=== PATIENT | female | born 1990 | race Two or more races ===

== ENCOUNTER 2020-07-27 10:19 | Emergency (ER) | payer SELFPAY ==
[2020-07-27] MEDS ORDERED: NORMAL SALINE 1000 ML 1,000 ML IV ONE (10:42)
--- NOTE | 2020-07-27 10:46 | ER Document Report ---
ED Medical Screen (RME) - General Chief Complaint: Headache >24 hrs old Stated Complaint: LIGHTHEADED,HEADACHE Time Seen by Provider: 07/27/20 10:34 - HPI Notes: 07/27/20 10:44 29-year-old female with a history of preeclampsia on amlodipine and lisinopril since 2019 who was recently diagnosed with anemia and started on iron pills presents to the emergency room for lightheadedness that has been constant as well as intermittent dizziness for the last 6 days. Reports she has had dull headaches for the last 3 days. Patient reports that the room is spinning intermittently reports some numbness and tingling in her hands. Denies any chest pain shortness of breath changes in vision. Denies any nausea,vomiting, or diarrhea. Patient's last menstrual cycle was 07/11/2020, she is on control. Patient takes amlodipine 10 mg and lisinopril 10 mg in the mornings, she has not taken them for the last 2 days. Her doctor at [facility], which she has just relocated from that area, advised her to discontinue taking them. I have greeted and performed a rapid initial assessment of this patient. A comprehensive ED assessment and evaluation of the patient, analysis of test results and completion of the medical decision making process will be conducted by additional ED providers. PHYSICAL EXAMINATION: GENERAL: Well-appearing, well-nourished and in no acute distress. HEAD: Atraumatic, normocephalic. EYES: Pupils equal round extraocular movements intact, conjunctiva are normal. NECK: Normal range of motion CV: s1, s2 regular LUNGS: No respiratory distress NEUROLOGICAL: Normal speech, normal gait. - Related Data Allergies/Adverse Reactions: No Known Allergies Allergy (Unverified 07/27/20 10:32) Home Medications: lisinopril, amlodipine Past Medical History - Social History Chew tobacco use (# tins/day): No Frequency of alcohol use: None Drug Abuse: None - Past Medical History Cardiac Medical History: Reports: Hx Hypertension - PP HTN Past Surgical History: Reports: Hx Section - x2 Physical Exam - Vital signs Vitals: Temp 98.9 F 07/27/20 10:33 Course - Vital Signs Vital signs: Temp Pulse Resp BP Pulse Ox 98.9 F 68 18 134/84 H 100 07/27/20 10:42 07/27/20 10:42 07/27/20 10:42 07/27/20 10:42 07/27/20 10:42
[2020-07-27 11:24] LABS: ABSOLUTE EOSINOPHILS # (AUTO) 0.1 10^3/uL (0.0-0.6); ABSOLUTE LYMPHOCYTES (AUTO) 1.9 10^3/uL (0.5-4.7); ABSOLUTE MONOCYTES (AUTO) 0.3 10^3/uL (0.1-1.4); ABSOLUTE NEUT (AUTO) 2.1 10^3/uL (1.7-8.2); BASOPHILS % (AUTO) 0.8 % (0-2); EOSINOPHILS % (AUTO) 1.9 % (0-6); HEMATOCRIT 37.6 % (36.0-47.0); HEMOGLOBIN 12.4 g/dL (12.0-15.5); LYMPHOCYTES % (AUTO) 43.8 % (13-45); MEAN CORPUSCULAR HEMOGLOBIN 25.2 pg (27.0-33.4); MEAN CORPUSCULAR HGB CONC 33.1 g/dL (32.0-36.0); MEAN CORPUSCULAR VOLUME 76 fl (80-97); MONOCYTES % (AUTO) 5.7 % (3-13); PLATELET COUNT 399 10^3/uL (150-450); RED BLOOD COUNT 4.93 10^6/uL (3.72-5.28); RED CELL DISTRIBUTION WIDTH 18.7 % (11.5-14.0); SEGMENTED NEUTROPHILS % (AUTO) 47.8 % (42-78); TOTAL CELLS COUNTED % (AUTO) 100 %; WHITE BLOOD COUNT 4.4 10^3/uL (4.0-10.5)
[2020-07-27 11:30] LABS: APPEARANCE,URINE SLIGHTLY-CLOUDY; BILIRUBIN,URINE NEGATIVE (NEGATIVE); COLOR,URINE YELLOW; GLUCOSE, URINE NEGATIVE (NEGATIVE); KETONES,URINE NEGATIVE (NEGATIVE); LEUKOCYTE ESTERASE,URINE NEGATIVE (NEGATIVE); NITRITE,URINE NEGATIVE (NEGATIVE); PROTEIN,URINE 30 mg/dL (NEGATIVE); URINE SPECIFIC GRAVITY 1.028; UROBILINOGEN,URINE NEGATIVE mg/dL (<2.0)
[2020-07-27 11:41] LABS: ALBUMIN 4.7 g/dL (3.5-5.0); ALKALINE PHOSPHATASE 40 U/L (38-126); ANION GAP 10 (5-19); ASPARTATE AMINO TRANSFERASE 25 U/L (14-36); BILIRUBIN,DIRECT 0.1 mg/dL (0.0-0.4); BILIRUBIN,TOTAL 0.3 mg/dL (0.2-1.3); BLOOD UREA NITROGEN 13 mg/dL (7-20); CARBON DIOXIDE 26 mmol/L (22-30); CHLORIDE 104 mmol/L (98-107); GLUCOSE 84 mg/dL (75-110); POTASSIUM 4.9 mmol/L (3.6-5.0)
[2020-07-27 11:44] LABS: C-REACTIVE PROTEIN < 5.0 mg/L (<10.0)
--- NOTE | 2020-07-27 11:48 | RADIOLOGY REPORT (SQ) ---
EXAM DESCRIPTION: CHEST SINGLE VIEW IMAGES COMPLETED DATE/TIME: 07/27/2020 11:26 am REASON FOR STUDY: dizziness COMPARISON: None. EXAM PARAMETERS: NUMBER OF VIEWS: One view. TECHNIQUE: Single frontal radiographic view of the chest acquired. RADIATION DOSE: NA LIMITATIONS: None. FINDINGS: LUNGS AND PLEURA: No opacities, masses or pneumothorax. No pleural effusion. MEDIASTINUM AND HILAR STRUCTURES: No masses. Contour normal. HEART AND VASCULAR STRUCTURES: Heart is at the upper limits of normal in size. No failure. BONES: No acute findings. HARDWARE: None in the chest. OTHER: No other significant finding. IMPRESSION: Mild cardiac enlargement. No failure or consolidation. TECHNICAL DOCUMENTATION: JOB ID: [id number] 2010 [employer]- All Rights Reserved Reading location - IP/workstation name: [email or web address]
[2020-07-27 12:01] LABS: ERYTHROCYTE SEDIMENTATION RATE 16 mm/hr (0-20)
--- NOTE | 2020-07-27 12:56 | EKG REPORT ---
SEVERITY:- OTHERWISE NORMAL ECG - SINUS ARRHYTHMIA, RATE 51-75 : Confirmed by: Roc Torres MD 27-Jul-2020 12:55:00
--- NOTE | 2020-07-27 13:28 | ER Document Report ---
ED General - General Chief Complaint: Headache >24 hrs old Stated Complaint: LIGHTHEADED,HEADACHE Time Seen by Provider: 07/27/20 10:34 - HPI Notes: Chief complaint: Dizziness History of present illness: 29-year-old female with history of hypertension presents for evaluation of dizziness of several days duration. She has a history of preeclampsia and chronic hypertension on amlodipine and lisinopril since 2019. She was recently diagnosed with anemia and started on iron pills presents to the emergency room for lightheadedness that has been constant as well as intermittent dizziness for the last 6 days. Reports she has had dull headaches for the last 3 days. Patient reports that the room is spinning intermittently reports some numbness and tingling in her hands. Denies any chest pain shortness of breath changes in vision. Denies any nausea,vomiting, or diarrhea. Patient's last menstrual cycle was 07/11/2020, she is on control. Patient takes amlodipine 10 mg and lisinopril 10 mg in the mornings, she has not taken them for the last 2 days. Her doctor at [facility], which she has just relocated from that area, advised her to discontinue taking them. 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 She has had a Covid test within the last week which was negative. She denies any fever. No cough or shortness of breath. - Related Data Allergies/Adverse Reactions: No Known Allergies Allergy (Verified 07/27/20 11:11) Home Medications: lisinopril, amlodipine Past Medical History - General Information source: Patient - Social History Smoking Status: Never Smoker Chew tobacco use (# tins/day): No Frequency of alcohol use: None Drug Abuse: None Lives with: Family Family History: Reviewed & Not Pertinent Patient has homicidal ideation: No - Past Medical History Cardiac Medical History: Reports: Hx Hypertension - PP HTN Past Surgical History: Reports: Hx Section - x2 Review of Systems - Review of Systems Notes: Constitutional: Negative for fever. HENT: Negative for sore throat. Eyes: Negative for visual changes. Cardiovascular: Negative for chest pain. Respiratory: Negative for shortness of breath. Gastrointestinal: Negative for abdominal pain, vomiting or diarrhea. Genitourinary: Negative for dysuria. Musculoskeletal: Negative for back pain. Skin: Negative for rash. Neurological: As per HPI. 10 point ROS negative except as marked above and in HPI. Physical Exam - Vital signs Vitals: Temp 98.9 F 07/27/20 10:33 - Notes Notes: GENERAL: Well-developed well-nourished female approximately stated age appearing in no acute distress. SKIN: Good turgor no rashes. HEAD: Normocephalic atraumatic. EYES: PERRLA. EOMI. Conjunctivae and sclerae clear. EARS: CANALS AND TMS CLEAR. NOSE: CLEAR. MOUTH: Moist mucosa. Good dentition. No stridor or edema. No drooling. NECK: Supple. No masses or thyromegaly. No adenopathy. Carotids 2+ without bruits. No JVD. BACK: Symmetrical without tenderness. CHEST: Respirations unlabored. Breath sounds clear and symmetrical. HEART: Regular rhythm. No murmur gallop or rub. ABDOMEN: Soft nontender without masses, organomegaly or rebound. Bowel sounds normally active. No bruits. GENITALIA: Deferred. EXTREMITIES: No edema. No calf tenderness. Cap refill less than 1.5 seconds. Dorsalis pedis and posterior tibial pulses 3+ and symmetrical. NEUROLOGICAL: GCS 15. Alert and oriented x3. Normal gait. Fluent speech. Cranial nerves II through XII intact. Sensorimotor and cerebellar normal. Normal tone. PSYCHIATRIC: Appropriate affect. Course - Vital Signs Vital signs: Temp Pulse Resp BP Pulse Ox 98.9 F 61 18 120/73 100 07/27/20 10:42 07/27/20 11:24 07/27/20 10:42 07/27/20 11:24 07/27/20 10:42 - Laboratory Result Diagrams: 07/27/20 10:59 07/27/20 10:59 Laboratory results interpreted by me: 07/27/20 07/27/20 07/27/20 10:59 10:59 10:59 MCV 76 L MCH 25.2 L RDW 18.7 H Creatinine 0.42 L Urine Protein 30 H - EKG Interpretation by Me Additional EKG results interpreted by me: 07/27/20 13:34 Twelve-lead EKG reviewed by me contemporaneously: 1121 hrs. Indication for study: Dizziness and hypertension Rhythm: Normal sinus with sinus arrhythmia Rate: 62 Intervals: Normal QRS axis: Normal +[address]/T wave changes: None Comparison with prior tracing: None Interpretation: Sinus arrhythmia Discharge - Discharge Clinical Impression: Vertigo, acute viral syndrome Condition: Stable Disposition: HOME, SELF-CARE Instructions: COVID-19 Guidance for Persons Under Investigation Additional Instructions: Vertigo You have experienced an episode of vertigo -- a whirling dizziness which may be accompanied by nausea and vomiting or staggering. Vertigo is often caused by an irritation of the inner ear, in which case it is called labyrinthitis. It can also be a symptom of a degenerating inner ear, nerve damage, or brain injury. Your physician has evaluated you to determine whether any further testing is necessary. Vertigo is often treated with dramamine or meclizine. These medications are helpful, but stronger medication may be needed if you are vomiting. Rest in bed. You should not drive or operate machinery until completely better. It may take one to three weeks for recovery. If there are new symptoms, such as decreased hearing or vision, severe headache, weakness or faintness, or confusion, call the physician. Prescriptions: Meclizine HCl [Antivert 25 mg Tablet] 25 mg PO TID PRN #21 tablet PRN Reason: Forms: Return to Work Referrals: [facility] [Provider Group] - Follow up as needed
--- NOTE | 2020-07-27 14:15 | RADIOLOGY REPORT (SQ) ---
EXAM DESCRIPTION: CT HEAD WITHOUT IMAGES COMPLETED DATE/TIME: 07/27/2020 1:53 pm REASON FOR STUDY: HTN, PEREZ, vertigo COMPARISON: None. TECHNIQUE: Axial images acquired through the brain without intravenous contrast. Images reviewed wi th bone, brain and subdural windows. Additional sagittal and coronal reconstructions were generated. Images stored on PACS. All CT scanners at this facility use dose modulation, iterative reconstruction, and/or weight based d osing when appropriate to reduce radiation dose to as low as reasonably achievable (ALARA). [facility]: Dose Right [facility]: CareDose [facility]: Dose Right [facility]: Teradose 4D [facility]: Smart [employer] RADIATION DOSE: CT Rad equipment meets quality standard of care and radiation dose reduction techniq ues were employed. CTDIvol: 53.2 mGy. DLP: 1070 mGy-cm. mGy. LIMITATIONS: None. FINDINGS: VENTRICLES: Normal size and contour. CEREBRUM: No masses. No hemorrhage. No midline shift. No evidence for acute infarction. Normal gra y/white matter differentiation. No areas of low density in the white matter. CEREBELLUM: No masses. No hemorrhage. No alteration of density. No evidence for acute infarction. EXTRAAXIAL SPACES: No fluid collections. No masses. ORBITS AND GLOBE: No intra- or extraconal masses. Normal contour of globe without masses. CALVARIUM: No fracture. PARANASAL SINUSES: No fluid or mucosal thickening. SOFT TISSUES: No mass or hematoma. OTHER: No other significant finding. IMPRESSION: NORMAL BRAIN CT WITHOUT CONTRAST. EVIDENCE OF ACUTE STROKE: NO. COMMENT: Quality ID # [id number]: Final reports with documentation of one or more dose reduction techniques (e.g., Automated exposure control, adjustment of the mA and/or kV according to patient size, use of iterative reconstruction technique) TECHNICAL DOCUMENTATION: JOB ID: [id number] 2010 [employer]- All Rights Reserved Reading location - IP/workstation name: [email or web address]
[2020-07-27 15:11] VITALS: BP 122/75
== END 2020-07-27 15:31 | disposition home or self-care (01) ==
LOC: ER 10:19
DX: R42 Dizziness and giddiness (principal); B34.9 Viral infection, unspecified; R51.9 Headache, unspecified; I10 Essential (primary) hypertension; Z20.828 Contact with and (suspected) exposure to other viral communicable diseases
CPT/HCPCS: 93005; 99285; 96360; 36415; 84703; 85025; 85652; 87635; 86140; 80053; 81001; 71045; 70450; 93010; J7030; C9803